=== PATIENT | female | born 1970 | race African-American/Black ===

== ENCOUNTER → 2021-09-04 | Outpatient (CLI) | payer OTHER ==
--- NOTE | 2021-09-05 07:03 | KCIC ---
AP, oblique, and lateral views of the left knee were obtained. Indication: Posterior knee pain Comparison: none. Findings: No fracture, dislocation, or joint effusion. There is very mild degenerative change of the knee. No j oint effusion. Electronically signed by: Dario Kathleen MD (09/05/2021 7:01 AM) [facility]
--- NOTE | 2021-09-05 07:05 | KCIC ---
3 views of the right first digit. INDICATION: Thumb pain since May. FINDINGS: No fracture subluxation dislocation. Joint spaces are intact. No significant degenerative change. Electronically signed by: Dario Kathleen MD (09/05/2021 7:02 AM) [facility]
== END ==
LOC: KCIC 15:57
PROVIDERS: ATTEND Family Medicine
DX: M25.562 Pain in left knee (principal); M79.644 Pain in right finger(s)
CPT/HCPCS: 73140; 73562